=== PATIENT | male | born 1970 | race Caucasian/White ===

== ENCOUNTER 2018-11-24 11:32 | Inpatient (IN) | payer OTHER ==
[2018-11-24] VITALS (10 sets, daily range): BP systolic 139–188; BP diastolic 86–102
[~2018-11-24] VITALS: Ht 165.1 cm; Wt 65.3 kg
[~2018-11-24 11:32] MED LIST: ASPIR 8181 MG PO; ASPIRIN325; ATORVASTATIN CA80 MG PO; GLUCOTROL5 MG PO; IMDUR 30 MG TAB30 M1 PO; IMDUR PO; LISINOPRIL5 MG PO; LOPRESSOR PO; LOPRESSOR25 PO; METFORMIN HCL500 MG PO; METFORMIN PO; NITROGLYCERIN0.4 MG SL; PLAVIX 75 MG TA75 M1 PO; PLAVIX 75 MG TA75 MG PO; PRAVASTATIN SOD20 MG PO; SIMVASTATIN40 MG PO; ZOCOR40 MG PO
[2018-11-24 11:47] LABS: ABSOLUTE BASOPHILS 0.1 thou/uL (0.0-0.2); ABSOLUTE EOSINOPHILS 0.1 thou/uL (0.0-0.7); ABSOLUTE LYMPHOCYTES 1.8 thou/uL (0.8-5.3); ABSOLUTE MONOCYTES 0.5 thou/uL (0.0-1.2); BASOPHILS 1.1 %; HEMATOCRIT 48.7 % (42.0-52.0); HEMOGLOBIN 16.5 gm/dL (14.0-18.0); LYMPHOCYTES 23.8 %; MCH 30.7 pg (26.0-34.0); MCHC 33.9 g/dL (28.0-37.0); MCV 90.7 fL (80.0-100.0); MONOCYTES 6.3 %; MPV 7.5 fl. (7.2-11.1); NUCLEATED RBCS 0 /100WBC; PLATELET COUNT* 280 thou/uL (150-400); POLYS 67.8 %; RBC 5.36 mil/uL (4.50-6.00); RDW-CV 13.3 % (10.5-14.5); WBC 7.4 thou/uL (4.0-11.0)
[2018-11-24 11:58] LABS: APTT 27.8 Seconds (25.0-31.3); INR 0.9; PROTIME 9.4 Seconds (9.20-11.50)
[2018-11-24 12:06] LABS: POTASSIUM 3.7 mmol/L (3.5-5.1); TROPONIN-I LEVEL 0.43 ng/mL (<0.06)
[2018-11-24 12:07] LABS: ALBUMIN 4.1 g/dL (3.4-5.0); MAGNESIUM 1.8 mg/dL (1.8-2.4); TOTAL BILIRUBIN 0.2 mg/dL (<0.1-1.0); TOTAL PROTEIN 8.9 g/dL (6.4-8.2)
--- NOTE | 2018-11-24 15:20 | EKG ---
[place] [address] ELECTROCARDIOGRAM REPORT Name: DEEDEE MATUTE Room: [address] ADM IN .R.#: [id number] Admission: 11/24/18 Attend Phys: Connor Cui MD Discharge: Date of : 68 Report #: [id number] THIS REPORT FOR: //name// [facility] ED Test Date: 2018-11-24 Test Time: 11:34:38 Pat Name: DEEDEE YEGVENIY STRAUSS Department: Room: [facility] Gender: M Curb Supervisor: Patti HOUSER : 1970 Requested By: Harlan Arredondo Order Number: [id number] MD: Dru Marshall Measurements Intervals [place] Rate: 67 P: 64 PA: 158 QRS: 38 QRSD: 114 T: 67 QT: 400 QTc: 423 Interpretive Statements Sinus rhythm Incomplete right bundle branch block ST elevation, consider acute pericarditis Compared to ECG 01/07/2017 07:55:07 Incomplete right bundle-branch block now present ST (T wave) deviation now present Intraventricular conduction delay no longer present T-wave abnormality no longer present Electronically Signed On 11-24-2018 15:20:18 CDT by Dru Marshall [email or web address] <ELECTRONICALLY SIGNED> By: Dru Marshall MD, [facility] 11/24/18 1520 1134 1134 Dru Marshall MD, [facility] /EPI
--- NOTE | 2018-11-24 15:20 | EKG ---
[place] [address] ELECTROCARDIOGRAM REPORT Name: DEEDEE MATUTE Room: [address] ADM IN [facility].#: [id number] Admission: 11/24/18 Attend Phys: Connor Cui MD Discharge: Date of : 68 Report #: [id number] THIS REPORT FOR: //name// [facility] ED Test Date: 2018-11-24 Test Time: 12:15:52 Pat Name: DEEDEE STRAUSS Department: Room: [facility] Gender: M Proposal Editor: Patti HOUSER : 1970 Requested By: Harlan Arredondo Order Number: [id number] MD: Dru Marshall Measurements Intervals [place] Rate: 65 P: 16 [place]: 156 QRS: 2 QRSD: 110 T: 61 QT: 402 QTc: 418 Interpretive Statements Sinus rhythm RSR' in V1 or V2, right VCD or RVH Compared to ECG 01/07/2017 07:55:07 Right ventricular hypertrophy now present RSR' in V1 or V2 now present Intraventricular conduction delay no longer present T-wave abnormality no longer present Electronically Signed On 11-24-2018 15:20:33 CDT by Dru Marshall [email or web address] <ELECTRONICALLY SIGNED> By: Dru Marshall MD, FACC 11/24/18 1520 1215 1215 Dru Marshall MD, [facility] /EPI
[2018-11-25 00:05] VITALS: BP 126/66
[2018-11-25 04:00] VITALS: BP 99/56
[2018-11-25 05:20] LABS: ABSOLUTE BASOPHILS 0.1 thou/uL (0.0-0.2); ABSOLUTE EOSINOPHILS 0.1 thou/uL (0.0-0.7); ABSOLUTE MONOCYTES 0.8 thou/uL (0.0-1.2); ABSOLUTE NEUTROPHILS 7.8 thou/uL (1.6-8.1); BASOPHILS 0.7 %; EOSINOPHILS 0.7 %; HEMATOCRIT 46.6 % (42.0-52.0); HEMOGLOBIN 15.9 gm/dL (14.0-18.0); LYMPHOCYTES 18.1 %; MCH 30.9 pg (26.0-34.0); MCV 90.8 fL (80.0-100.0); MONOCYTES 7.8 %; NUCLEATED RBCS 0 /100WBC; PLATELET COUNT* 281 thou/uL (150-400); POLYS 72.7 %; RBC 5.13 mil/uL (4.50-6.00); RDW-CV 13.2 % (10.5-14.5); WBC 10.8 thou/uL (4.0-11.0)
[2018-11-25 05:41] LABS: CALCIUM 9.1 mg/dL (8.5-10.1); POTASSIUM 3.9 mmol/L (3.5-5.1)
[2018-11-25 05:43] LABS: CHOLESTEROL 366 mg/dL (<200); HDL CHOLESTEROL 50 mg/dL (>40); TC:HDL 7.3 Ratio (Not establshd); TRIGLYCERIDE 526 mg/dL (<150); VLDL 105 mg/dL (<40)
[2018-11-25 05:47] LABS: SERUM ASSESSMENT CLEAR; TROPONIN-I LEVEL 8.61 ng/mL (<0.06)
[2018-11-25 08:00] VITALS: BP 92/61
[2018-11-25 10:45] VITALS: BP 92/61
--- NOTE | 2018-11-25 10:46 | EKG ---
[place] [address] ELECTROCARDIOGRAM REPORT Name: DEEDEE MATUTE Room: [address] ADM IN [facility].#: [id number] Admission: 11/24/18 Attend Phys: Connor Cui MD Discharge: Date of : 68 Report #: [id number] THIS REPORT FOR: //name// [facility] Test Date: 2018-11-24 Test Time: 17:43:18 Pat Name: DEEDEE YEVGENIY STRAUSS Department: Room: [address] Gender: M Percher: KESHAV : 1970 Requested By: Travis Chopra Order Number: [id number] Lee MD: Travis Chopra Measurements Intervals [place] Rate: 68 P: 36 RI: 158 QRS: -5 QRSD: 115 T: 79 QT: 367 QTc: 393 Interpretive Statements Sinus rhythm Incomplete right bundle branch block Inferior infarct Compared to ECG 11/24/2018 12:15:52 no change Electronically Signed On 11-25-2018 10:46:10 CDT by Travis Chopra [email or web address] <ELECTRONICALLY SIGNED> By: Travis Chopra MD, [facility] 11/25/18 1046 1743 1743 Travis Chopra MD, [facility] /EPI
--- NOTE | 2018-11-25 10:54 | EKG ---
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: : 1970 Requested By: Travis Chopra Order Number: [id number] Lee MD: Travis Chopra Measurements Intervals [place] Rate: 77 P: 51 [place]: 142 QRS: -70 QRSD: 114 T: 27 QT: 454 QTc: 514 Interpretive Statements Sinus rhythm Borderline IVCD with LAD Inferior infarct, recent Abnrm T, consider ischemia, anterolateral lds ST elevation, consider lateral injury Prolonged QT interval Compared to ECG 11/24/2018 12:15:52 Prolonged QT interval now present Electronically Signed On 11-25-2018 10:54:02 CDT by Travis Chopra [email or web address] <ELECTRONICALLY SIGNED> By: Travis Chopra MD, [facility] 11/25/18 1054 0901 Travis Chopra MD, [facility] /EPI
[2018-11-25 13:41] VITALS: BP 92/61
--- NOTE | 2018-11-25 17:07 | CON ---
[address] [address] CONSULTATION Name: DEEDEE MATUTE Room: [address]#: [id number] Admission: 11/24/18 Attend Phys: Connor Cui MD Discharge: 11/25/18 Date of : 68 Report #: [id number] THIS REPORT FOR: //name// CC: Connor Cui [facility] physician/PCP INDICATION: Non-ST elevation myocardial infarction. HISTORY OF PRESENT ILLNESS: The patient is a 48-year-old male with a history of coronary artery disease with remote coronary artery bypass grafting. By cardiac catheterization in 12/2016, he was found to have 70% mid LAD stenosis, right coronary artery chronically occluded in the mid portion. Saphenous vein graft to the posterolateral LV branch occluded. Saphenous vein graft to the PDA with a 90% stenosis for which he underwent intervention. GUY graft to the LAD widely patent. The patient is admitted to the hospital through the Emergency Room with complaints of chest pain consistent with unstable angina. He has midsternal chest discomfort without radiation with mild diaphoresis. The patient states this is similar to the pain he has had with his prior cardiac issues. He denies shortness of breath. He is without other cardiac complaint. PAST MEDICAL HISTORY: 1. Coronary artery disease. 2. Hyperlipidemia. 3. Type 2 diabetes mellitus. 4. Hypertension. 5. Coronary artery bypass grafting in 2005. SOCIAL HISTORY: The patient drinks a moderate amount of alcohol. He does not smoke. FAMILY HISTORY: Noncontributory. ALLERGIES: None documented. REPORTED HOME MEDICATIONS: Aspirin 81 mg daily, atorvastatin 80 mg at bedtime, Plavix 75 mg daily, Glucotrol 5 mg daily, Imdur 30 mg 1/2 tablet daily, lisinopril 5 mg daily, metformin 1000 mg b.i.d., metoprolol tartrate 25 mg b.i.d. and Nitrostat sublingual p.r.n. PHYSICAL EXAMINATION: VITAL SIGNS: Stable. Blood pressure 156/93 and pulse 70 and regular. GENERAL: This is a thin, pleasant male who is in no distress. Mood and affect appropriate. HEENT: Extraocular muscles are intact. Mucous membranes are moist. NECK: Shows no jugular venous distention. There [place] [address] CONSULTATION Name: DEDEEE MATUTE Room: [address]#: [id number] Admission: 11/24/18 Attend Phys: Connor Cui MD Discharge: 11/25/18 Date of : 68 Report #: [id number] CHEST: Reveals clear lung mackey without wheezes or rales. CARDIOVASCULAR: Reveals regular rhythm with normal S1 and S2. I do not appreciate gallop or murmur. ABDOMEN: Reveals normal bowel sounds. The abdomen is soft and nontender. EXTREMITIES: Shows no edema. Peripheral pulses are 2+ and easily palpable. LABORATORY DATA: A 12-lead EKG shows sinus rhythm without acute ST or T-wave abnormality. Chest x-ray shows no acute cardiopulmonary process. Labs are reviewed. Sodium 133, potassium 3.7, chloride 96, bicarbonate 26, BUN 11, creatinine 1.0. Serum glucose 246. AST 25, lipase 406, total bilirubin 0.2, calcium 9.0, magnesium 1.8, alkaline phosphatase 118, ALT 41, total protein 8.9, albumin 4.1. EGFR 79. Total CPK 233, CK-MB 6.5 and troponin 0.43. NT-proBNP 61. Coags are within normal limits. White blood cell count 7.4, hemoglobin 16.5 and platelet count 280,000. IMPRESSION AND RECOMMENDATIONS: 1. Non-ST elevation myocardial infarction. We will proceed with coronary angiography. Further intervention pending the results of that study. 2. Coronary artery disease. The patient appears to be on appropriate regimen including aspirin, Plavix, beta cinda and statin agent. We will make adjustments as necessary. 3. Hypertension. We will adjust the patient's lisinopril and metoprolol for improved blood pressure control. 4. Hyperlipidemia. Continue atorvastatin 80 mg daily. Repeat fasting lipid profile. <ELECTRONICALLY SIGNED> By: Dru Marshall MD, FACC 11/25/18 1707 1326 [id number] Marshall MD, FACC /nt
== END 2018-11-25 14:24 | disposition home or self-care (01) | DRG 281 ==
LOC: M.ERS 11:32 → M.TBA-ER 12:21 → M.2W 12:21
PROVIDERS: Emergency Medicine Emergency Medical Services; Internal Medicine Cardiovascular Disease; ADMIT Internal Medicine
DX: I21.4 Non-ST elevation (NSTEMI) myocardial infarction (principal); E87.1 Hypo-osmolality and hyponatremia; I25.110 Atherosclerotic heart disease of native coronary artery with unstable angina pectoris; E11.9 Type 2 diabetes mellitus without complications; I25.10 Atherosclerotic heart disease of native coronary artery without angina pectoris; E78.5 Hyperlipidemia, unspecified; Z82.49 Family history of ischemic heart disease and other diseases of the circulatory system; Z83.3 Family history of diabetes mellitus; I25.2 Old myocardial infarction; Z95.5 Presence of coronary angioplasty implant and graft; Z95.1 Presence of aortocoronary bypass graft; Z23 Encounter for immunization

== ENCOUNTER 2019-09-15 12:32 | Emergency (ER) | payer OTHER ==
[~2019-09-15] VITALS: Ht 165.1 cm; Wt 66.7 kg
[2019-09-15 14:37] LABS: ABSOLUTE BASOPHILS 0.1 thou/uL (0.0-0.2); ABSOLUTE EOSINOPHILS 0.1 thou/uL (0.0-0.7); ABSOLUTE LYMPHOCYTES 1.8 thou/uL (0.8-5.3); ABSOLUTE MONOCYTES 0.6 thou/uL (0.0-1.2); BASOPHILS 1.5 %; EOSINOPHILS 2.1 %; HEMATOCRIT 43.6 % (42.0-52.0); HEMOGLOBIN 15.2 gm/dL (14.0-18.0); LYMPHOCYTES 26.9 %; MCHC 34.9 g/dL (28.0-37.0); MCV 91.7 fL (80.0-100.0); MONOCYTES 8.7 %; MPV 7.3 fl. (7.2-11.1); NUCLEATED RBCS 0 /100WBC; PLATELET COUNT* 275 thou/uL (150-400); POLYS 60.8 %; RBC 4.76 mil/uL (4.50-6.00); WBC 6.6 thou/uL (4.0-11.0)
[2019-09-15 14:50] LABS: CALCIUM 8.9 mg/dL (8.5-10.1); CREATININE 0.8 mg/dL (0.6-1.3); INR 0.9; PROTIME 9.7 Seconds (9.20-11.50)
[2019-09-15 14:56] LABS: ALBUMIN 4.1 g/dL (3.4-5.0); TOTAL BILIRUBIN 0.4 mg/dL (<0.1-1.0); TOTAL PROTEIN 8.6 g/dL (6.4-8.2)
[2019-09-15 16:47] VITALS: BP 108/70
--- NOTE | 2019-09-18 09:54 | EKG ---
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: MARIA ELENA : 1970 Requested By: Donna Kong Order Number: [id number] MD: Travis Chopra Measurements Intervals [place] Rate: 71 P: 40 [place]: 160 QRS: -15 QRSD: 111 T: 86 QT: 387 QTc: 421 Interpretive Statements Sinus rhythm Borderline left axis deviation RSR' in V1 or V2, probably normal variant Borderline T wave abnormalities Compared to ECG 11/25/2018 09:01:43 RSR' in V1 or V2 now present ST (T wave) deviation no longer present Prolonged QT interval no longer present Electronically Signed On 09-18-2019 9:54:15 CODING TEAM LEAD by Travis Chopra [email or web address] <ELECTRONICALLY SIGNED> By: Travis Chopra MD, FAC 09/18/19 0954 1237 1237 Travis Chopra MD, FAC /EPI
== END 2019-09-15 16:35 | disposition home or self-care (01) ==
LOC: M.ERS 12:32
PROVIDERS: Personal Emergency Response Attendant
DX: R07.89 Other chest pain (principal); I10 Essential (primary) hypertension; E11.9 Type 2 diabetes mellitus without complications; E78.00 Pure hypercholesterolemia, unspecified; Z95.1 Presence of aortocoronary bypass graft